=== PATIENT | female | born 1965 | race Caucasian/White ===

== ENCOUNTER → 2020-04-17 | Outpatient (CLI) | payer MEDICARE, SELFPAY | LOC: KOH-I 11:32 | DX: M79.602 Pain in left arm (principal) | CPT/HCPCS: 73030; 73070; 73090 ==

== ENCOUNTER → 2020-04-24 | Outpatient (CLI) | payer MEDICARE, SELFPAY | LOC: EMI 08:00 | DX: S52.122A Displaced fracture of head of left radius, initial encounter for closed fracture (principal); M25.422 Effusion, left elbow | CPT/HCPCS: 73221 ==

== ENCOUNTER 2020-06-25 18:10 | Emergency (ER) | payer MEDICARE, SELFPAY ==
[2020-06-25 19:04] LABS: HEMOGLOBIN 12.1 gm/dl (12.3-15.3); RED BLOOD COUNT 3.95 M/UL (4.00-5.10); WHITE BLOOD COUNT 3.5 K/UL (4.5-11.0)
[2020-06-25 19:22] LABS: BUN/CREATININE RATIO 16 (0-10)
== END 2020-06-25 23:24 | disposition home or self-care (01) ==
LOC: ER1 18:10
PROVIDERS: Physician Assistant
DX: Z23 Encounter for immunization (principal); U07.1 COVID-19; D84.9 Immunodeficiency, unspecified; I10 Essential (primary) hypertension; F17.290 Nicotine dependence, other tobacco product, uncomplicated; Z88.8 Allergy status to other drugs, medicaments and biological substances; Z88.1 Allergy status to other antibiotic agents
CPT/HCPCS: 0240U; 71045; 80053; 81001; 82550; 82553; 83605; 83735; 83874; 84484; 85025; 87040; 87086; 93005; 99285; M0239

== ENCOUNTER → 2020-08-14 | Outpatient (CLI) | payer MEDICARE, SELFPAY ==
[2020-08-14 13:56] LABS: RED BLOOD COUNT 3.94 M/UL (4.00-5.10); WHITE BLOOD COUNT 6.4 K/UL (4.5-11.0)
[2020-08-14 14:11] LABS: BUN/CREATININE RATIO 18 (0-10)
== END ==
LOC: LAB 13:02
PROVIDERS: Nurse Practitioner Family
DX: R06.02 Shortness of breath (principal); I10 Essential (primary) hypertension; E78.5 Hyperlipidemia, unspecified; R53.83 Other fatigue
CPT/HCPCS: 36415; 71046; 80053; 80061; 84443; 85025

== ENCOUNTER → 2021-01-10 | Outpatient (CLI) | payer MEDICARE ==
[2021-01-10 13:03] LABS: RED BLOOD COUNT 3.78 M/UL (4.00-5.10); WHITE BLOOD COUNT 4.2 K/UL (4.5-11.0)
[2021-01-10 13:32] LABS: BUN/CREATININE RATIO 12 (0-10)
[2021-01-11 07:10] LABS: VITAMIN D, 25-HYDROXY 19.1 ng/mL (30.0-100.0)
[2021-01-11 08:14] LABS: ANTISTREPTOLYSIN O AB <20.0 IU/mL (0.0-200.0); RHEUMATOID ARTHRITIS FACTOR 299.7 IU/mL (0.0-13.9)
[2021-01-11 12:15] LABS: ANTI-DSDNA ANTIBODIES <1 IU/mL (0-9); ANTISCLERODERMA-70 ANTIBODIES <0.2 AI (0.0-0.9); RNP ANTIBODIES <0.2 AI (0.0-0.9); SJOGREN'S ANTI-SS-A <0.2 AI (0.0-0.9)
[2021-01-11 14:15] LABS: THYROGLOBULIN ANTIBODY <1.0 IU/mL (0.0-0.9); THYROID PEROXIDASE (TPO) AB <8 IU/mL (0-34)
[2021-01-11 15:10] LABS: ACTIN (SMOOTH MUSCLE) ANTIBODY 4 Units (0-19)
== END ==
LOC: RAD 10:54
PROVIDERS: Nurse Practitioner Family
DX: M25.562 Pain in left knee (principal); M25.462 Effusion, left knee; M25.40 Effusion, unspecified joint; R68.89 Other general symptoms and signs; R79.89 Other specified abnormal findings of blood chemistry; E78.5 Hyperlipidemia, unspecified; R53.0 Neoplastic (malignant) related fatigue; R73.09 Other abnormal glucose; E55.9 Vitamin D deficiency, unspecified
CPT/HCPCS: 36415; 73560; 80053; 80061; 82607; 82728; 83036; 83516; 83540; 83550; 84443; 84550; 85025; 85652; 86038; 86060; 86140; 86200; 86225; 86235; 86376; 86431; 86800

== ENCOUNTER → 2021-06-06 | Outpatient (CLI) | payer MEDICARE | LOC: EMI 13:00 | DX: M25.562 Pain in left knee (principal); S83.282A Other tear of lateral meniscus, current injury, left knee, initial encounter; M23.001 Cystic meniscus, unspecified lateral meniscus, left knee | CPT/HCPCS: 73721 ==

== ENCOUNTER → 2021-11-23 | Outpatient (CLI) | payer MEDICARE | LOC: KOH-I 14:15 | DX: Z12.31 Encounter for screening mammogram for malignant neoplasm of breast (principal); M81.0 Age-related osteoporosis without current pathological fracture; R41.3 Other amnesia | CPT/HCPCS: 70551 ==

== ENCOUNTER → 2021-12-11 | Outpatient (CLI) | payer MEDICARE | LOC: KOH-I 09:16 | DX: J01.81 Other acute recurrent sinusitis (principal) | CPT/HCPCS: 70486 ==